=== PATIENT | female | born 1960 | race Caucasian/White ===

== ENCOUNTER 2019-05-30 05:17 | Emergency (ER) | payer MEDICAID ==
[~2019-05-30] VITALS: Ht 165.1 cm; Wt 104.3 kg
[2019-05-30 05:20] VITALS: BP_SYST 129
--- NOTE | 2019-05-30 05:20 | NUR ---
Patient to ER bed 7 to gown for evaluation. Side rails up.
--- NOTE | 2019-05-30 05:26 | NUR ---
Pt ambulated to ER bed 7 and complains of low back pain that initially started a month ago. Pt states she had "something with one of her disks" but that had not caused any issues for a while. Pt denies any trauma to back. Per pt, pain started on the right side of back and now radiates across lower back. Pt denies dysuria, fever. No other injuries/complaints per patient or noted.
[2019-05-30] MEDS ORDERED: LEVO125T PO (05:34)
[2019-05-30] MEDS ORDERED: AMIT25TA9 PO (05:35)
[2019-05-30] MEDS ORDERED: DULO60CA41 PO (05:35)
--- NOTE | 2019-05-30 05:41 | NUR ---
ER Dr. Bsuby at bedside examining patient.
[2019-05-30] MEDS ORDERED: ONDANSETRON 4 MG ODT TAB PO ONE (05:45)
[2019-05-30] MEDS ORDERED: IBUPROFEN 800 MG TABLET PO ONE (06:15)
[2019-05-30 07:11] VITALS: BP_SYST 117
--- NOTE | 2019-05-30 07:11 | NUR ---
Patient given written and verbal discharge instructions and verbalizes understanding. ER MD discussed with patient the results and treatment provided. Patient in stable condition. ID arm band removed. Rx of Ibuprofen, Soma, Tramadol given. Patient educated on pain management and to follow up with PMD. Pain Scale 0. Opportunity for questions provided and answered. Medication side effect fact sheet provided.
== END 2019-05-30 07:11 | disposition home or self-care (01) ==
LOC: SED 05:17
DX: M54.6 Pain in thoracic spine (principal); Z79.899 Other long term (current) drug therapy
CPT/HCPCS: 71046; 99283; Q0162